=== PATIENT | male | born 1975 | race Caucasian/White ===

== ENCOUNTER 2019-10-31 12:50 | Emergency (ER) | payer OTHER ==
[2019-10-31] MEDS ORDERED: Lidocaine 1% w/Epinephrine 1:100K 20 ML VIAL ONE (13:51)
[2019-10-31] MEDS ORDERED: cefTRIAXone\\ROCEPHIN 2 GM VIAL ONE (14:21)
[2019-10-31] MEDS ORDERED: Lidocaine 1% PF 5 ML VIAL ONE (14:22)
== END 2019-10-31 14:45 ==
LOC: EEVIPCON 12:50 → ERS 12:50
DX: L02.412 Cutaneous abscess of left axilla (principal); Z79.1 Long term (current) use of non-steroidal anti-inflammatories (NSAID)
CPT/HCPCS: 10061; 96372; J0696; J2001